=== PATIENT | male | born 1960 | race Caucasian/White ===

== ENCOUNTER → 2016-11-29 | Outpatient (REF) | payer OTHER ==
[~2016-11-29] MED LIST: ASPI81TA85 PO; PEPCCHW3 PO
== END ==
LOC: M LAB REF 16:53
PROVIDERS: ATTEND Family Medicine
DX: D23.5 Other benign neoplasm of skin of trunk (principal); L57.0 Actinic keratosis

== ENCOUNTER → 2017-03-07 | Outpatient (REF) | payer OTHER | LOC: M LAB REF 15:56 | PROVIDERS: ATTEND Family Medicine | DX: L57.0 Actinic keratosis (principal) ==

== ENCOUNTER → 2017-04-28 | Outpatient (CLI) | payer OTHER ==
[2017-04-28 19:36] LABS: FOLATE 7.4 NG/ML; VITAMIN B12 LEVEL 535 PG/ML
[2017-04-28 19:41] LABS: ALBUMIN 3.8 GM/DL (3.2-5.2); ALBUMIN/GLOBULIN RATIO 1.27 (1.00-1.93); ALKALINE PHOSPHATASE 72 U/L (45-117); ALT/SGPT 33 U/L (12-78); ANION GAP 9 MEQ/L (8-16); AST/SGOT 24 U/L (15-37); BILIRUBIN,TOTAL 0.4 MG/DL (0.2-1.0); BLOOD UREA NITROGEN 18 MG/DL (7-18); CALCIUM LEVEL 8.9 MG/DL (8.5-10.1); CARBON DIOXIDE LEVEL 25 MEQ/L (21-32); CHLORIDE LEVEL 109 MEQ/L (98-107); CREATININE FOR GFR 1.28 MG/DL (0.70-1.30); GLOMERULAR FILTRATION RATE > 60.0 (>56); GLUCOSE, FASTING 104 MG/DL (70-105); MAGNESIUM LEVEL 2.3 MG/DL (1.8-2.4); POTASSIUM SERUM 4.2 MEQ/L (3.5-5.1); SODIUM LEVEL 143 MEQ/L (136-145); TOTAL PROTEIN 6.8 GM/DL (6.4-8.2)
[2017-04-28 21:28] LABS: BASO # 0.1 K/mm3 (0.0-0.2); EOS # 0.2 K/mm3 (0.0-0.50); EOS % 1.8 % (0.0-3.0); LARGE UNSTAINED CELL # 0.1 K/mm3 (0.0-0.4); LARGE UNSTAINED CELL % 1.4 % (0.0-4.0); LYMPH # 2.6 K/mm3 (1.5-4.5); LYMPH % 29.9 % (24.0-44.0); MEAN CORPUSCULAR HEMOGLOBIN 30.2 pg (27.0-33.0); MEAN CORPUSCULAR HGB CONC 34.2 g/dl (32.0-36.5); MEAN CORPUSCULAR VOLUME 88.4 fl (80.0-96.0); MONO # 0.5 K/mm3 (0.0-0.8); MONO % 6.2 % (0.0-5.0); NEUTROPHILS % 59.7 % (36.0-66.0); PLATELET COUNT, AUTOMATED 288 k/mm3 (150-450); RED CELL DISTRIBUTION WIDTH 13.1 % (11.5-14.5); WHITE BLOOD COUNT 8.3 K/mm3 (4.0-10.0)
== END ==
LOC: M SMT 14:02
PROVIDERS: ATTEND Psychiatry & Neurology Neurology
DX: R20.9 Unspecified disturbances of skin sensation (principal); Z13.29 Encounter for screening for other suspected endocrine disorder

== ENCOUNTER → 2017-05-09 | Outpatient (REF) | payer OTHER | LOC: M LAB REF 15:57 | PROVIDERS: ATTEND Family Medicine | DX: L82.1 Other seborrheic keratosis (principal) ==

== ENCOUNTER → 2020-07-19 | Outpatient (REF) | payer OTHER ==
[~2020-07-19] MED LIST changes: -ASPI81TA85 PO; +ASPI81TA86 PO
== END ==
LOC: M LAB REF 17:33
PROVIDERS: ATTEND Family Medicine
DX: D48.5 Neoplasm of uncertain behavior of skin (principal)

== ENCOUNTER → 2020-08-08 | Outpatient (CLI) | payer OTHER ==
[2020-08-08 16:05] LABS: BASO # 0.1 10^3/uL (0.0-0.2); BASO % 0.8 % (0.0-1.0); EOS # 0.2 10^3/uL (0.0-0.5); EOS % 2.6 % (0.0-3.0); HEMOGLOBIN 15.7 g/dl (13.5-17.5); LYMPH # 2.6 10^3/uL (1.5-5.0); LYMPH % 29.4 % (24.0-44.0); MEAN CORPUSCULAR HEMOGLOBIN 28.3 pg (27.0-33.0); MEAN CORPUSCULAR VOLUME 88.3 fl (80.0-96.0); MONO # 0.6 10^3/uL (0.0-0.8); MONO % 6.5 % (0.0-5.0); NEUTROPHILS # 5.3 10^3/uL (1.5-8.5); NEUTROPHILS % 60.5 % (36.0-66.0); PLATELET COUNT, AUTOMATED 282 10^3/uL (150-450); RED BLOOD COUNT 5.55 10^6/uL (4.30-6.10); WHITE BLOOD COUNT 8.7 10^3/uL (4.0-10.0)
[2020-08-08 16:29] LABS: HEMOGLOBIN A1c 5.5 %
[2020-08-08 16:40] LABS: ALBUMIN 3.8 GM/DL (3.2-5.2); BILIRUBIN,TOTAL 0.7 MG/DL (0.2-1.0); CALCIUM LEVEL 8.9 MG/DL (8.5-10.1); CHOLESTEROL RISK RATIO 6.676 (<5); CREATININE FOR GFR 1.35 MG/DL (0.70-1.30); FREE T4 0.97 NG/DL (0.76-1.46); GLOMERULAR FILTRATION RATE 57.6 (>56); PERCENT SATURATION 37.3 % (19.7-50.0); POTASSIUM SERUM 5.3 MEQ/L (3.5-5.1); THYROID STIMULATING HORMONE 5.29 uIU/ML (0.358-3.740); TOTAL PROTEIN 6.9 GM/DL (6.4-8.2); URIC ACID 4.7 MG/DL (3.5-7.2)
[2020-08-08 16:48] LABS: TOTAL 25(OH) VITAMIN D 28.7 NG/ML (30.0-100.0)
--- NOTE | 2020-08-09 03:31 | REP ---
INDICATION: NEOPLASM OF UNCERTAIN BEHAVIOR OF BONE COMPARISON: None. TECHNIQUE: AP, lateral, bilateral oblique views right hand. FINDINGS: The osseous structures and joint spaces are intact and normal. There is no evidence for acute fracture or dislocation. Surrounding soft tissues are unremarkable. No subcutaneous emphysema or radiodense foreign body. IMPRESSION: . No obvious abnormality by radiographic evaluation. <Electronically signed by Damir Jean-Baptiste > 08/09/20 [id number]
== END ==
LOC: M WUC 10:55
PROVIDERS: ATTEND Family Medicine
DX: Z13.220 Encounter for screening for lipoid disorders (principal); R53.83 Other fatigue; R03.0 Elevated blood-pressure reading, without diagnosis of hypertension; D48.0 Neoplasm of uncertain behavior of bone and articular cartilage

== ENCOUNTER → 2020-12-29 | Outpatient (CLI) | payer OTHER ==
--- NOTE | 2020-12-29 12:16 | REP ---
INDICATION: PRECORDIAL PAIN. COMPARISON: . TECHNIQUE: Upright PA and lateral chest. FINDINGS: The lung maurer are clear. Cardiac size is normal. The selena, mediastinum and skeletal structures are unremarkable. The lingular infiltrate identified on the previous study has resolved. IMPRESSION: Essentially negative PA and lateral chest <Electronically signed by Kofi Morris > 12/29/20 1214
[2020-12-29 13:10] LABS: CK-MB VALUE MASS 1.3 NG/ML (<3.6); CPK CREATINE PHOSPHOKINASE 92 U/L (39-308); MB/CK RELATIVE INDEX 1.41 (< OR =4); TROPONIN I < 0.02 NG/ML (< 0.10)
== END ==
LOC: M WUC 11:49
PROVIDERS: ATTEND Physician Assistant
DX: R07.2 Precordial pain (principal)

== ENCOUNTER → 2020-12-29 | Outpatient (CLI) | payer OTHER ==
[2020-12-29 13:17] LABS: ALT/SGPT 41 U/L (12-78); BILIRUBIN,TOTAL 0.5 MG/DL (0.2-1.0); BLOOD UREA NITROGEN 17 MG/DL (7-18); CALCIUM LEVEL 9.1 MG/DL (8.5-10.1); CARBON DIOXIDE LEVEL 29 MEQ/L (21-32); CHLORIDE LEVEL 109 MEQ/L (98-107); CHOLESTEROL LEVEL 149 MG/DL (<200); CHOLESTEROL RISK RATIO 4.027 (<5); CREATININE FOR GFR 1.09 MG/DL (0.70-1.30); FREE T4 1.03 NG/DL (0.76-1.46); GLOMERULAR FILTRATION RATE > 60.0 (>56); GLUCOSE, FASTING 106 MG/DL (70-100); HDL CHOLESTEROL 37 MG/DL (>40); LDL CHOLESTEROL 72 MG/DL (<100); NON-HDL-C 112 MG/DL; POTASSIUM SERUM 4.8 MEQ/L (3.5-5.1); SODIUM LEVEL 140 MEQ/L (136-145); TOTAL PROTEIN 7.2 GM/DL (6.4-8.2); TRIGLYCERIDES LEVEL 198 MG/DL (<150)
[2020-12-29 13:18] LABS: TOTAL 25(OH) VITAMIN D 43.9 NG/ML (30.0-100.0)
== END ==
LOC: M WUC 11:46
PROVIDERS: ATTEND Family Medicine
DX: E03.9 Hypothyroidism, unspecified (principal); E55.9 Vitamin D deficiency, unspecified; Z12.5 Encounter for screening for malignant neoplasm of prostate; E78.2 Mixed hyperlipidemia

== ENCOUNTER → 2020-12-31 | Outpatient (CLI) | payer OTHER ==
[2020-12-31 12:12] LABS: CPK CREATINE PHOSPHOKINASE 172 U/L (39-308); MB/CK RELATIVE INDEX 1.16 (< OR =4); TROPONIN I < 0.02 NG/ML (< 0.10)
== END ==
LOC: M LAB 12-30 11:26
PROVIDERS: ATTEND Physician Assistant
DX: R07.2 Precordial pain (principal)

== ENCOUNTER → 2022-11-18 | Outpatient (CLI) | payer OTHER | LOC: M RAD 14:33 | PROVIDERS: ATTEND Family Medicine | DX: Z12.2 Encounter for screening for malignant neoplasm of respiratory organs (principal); F17.210 Nicotine dependence, cigarettes, uncomplicated ==

== ENCOUNTER → 2023-07-01 | Outpatient (REF) | payer OTHER | LOC: M LAB REF 18:15 | PROVIDERS: ATTEND Family Medicine | DX: L82.1 Other seborrheic keratosis (principal) ==

== ENCOUNTER → 2023-11-25 | Outpatient (CLI) | payer OTHER | LOC: M RAD 13:26 | PROVIDERS: ATTEND Family Medicine | DX: Z12.2 Encounter for screening for malignant neoplasm of respiratory organs (principal); F17.210 Nicotine dependence, cigarettes, uncomplicated; J43.9 Emphysema, unspecified; I70.0 Atherosclerosis of aorta; I25.10 Atherosclerotic heart disease of native coronary artery without angina pectoris ==

== ENCOUNTER → 2024-12-29 | Outpatient (CLI) | payer OTHER | LOC: M RAD 13:33 | PROVIDERS: ATTEND Family Medicine | DX: F17.210 Nicotine dependence, cigarettes, uncomplicated (principal) ==

== ENCOUNTER → 2025-08-30 | Outpatient (CLI) | payer OTHER | LOC: M PLAIMG 14:06 | PROVIDERS: ATTEND Family Medicine | DX: S93.401A Sprain of unspecified ligament of right ankle, initial encounter (principal); X58.XXXA Exposure to other specified factors, initial encounter; Y92.9 Unspecified place or not applicable; Y93.9 Activity, unspecified; Y99.9 Unspecified external cause status ==